=== PATIENT | female | born 1970 | race Caucasian/White ===

== ENCOUNTER → 2019-07-16 14:33 | Outpatient (BNVA) | payer MEDICAID, SELFPAY | PROVIDERS: Family Provider Family Medicine; PCP Family Medicine; Visit Provider Nurse Practitioner Psychiatric/Mental Health | DX: F31.76 Bipolar disorder, in full remission, most recent episode depressed (principal); F43.12 Post-traumatic stress disorder, chronic; F15.21 Other stimulant dependence, in remission | CPT/HCPCS: 90832; 99214 ==

== ENCOUNTER → 2019-07-30 07:53 | Outpatient (BNVA) | payer MEDICAID, SELFPAY | PROVIDERS: Family Provider Family Medicine; PCP Family Medicine; Visit Provider Psychiatry & Neurology Psychiatry | DX: F43.12 Post-traumatic stress disorder, chronic (principal); F31.76 Bipolar disorder, in full remission, most recent episode depressed; F15.21 Other stimulant dependence, in remission | CPT/HCPCS: 90832 ==

== ENCOUNTER → 2019-09-02 13:05 | Outpatient (BNVA) | payer MEDICAID, SELFPAY | PROVIDERS: Family Provider Family Medicine; PCP Family Medicine; Visit Provider Counselor Mental Health | DX: F43.12 Post-traumatic stress disorder, chronic (principal); F31.76 Bipolar disorder, in full remission, most recent episode depressed | CPT/HCPCS: 90834 ==

== ENCOUNTER → 2019-09-11 11:49 | Outpatient (BNVA) | payer MEDICAID, SELFPAY | PROVIDERS: Family Provider Family Medicine; PCP Family Medicine; Visit Provider Counselor Mental Health | DX: F43.12 Post-traumatic stress disorder, chronic (principal); F31.76 Bipolar disorder, in full remission, most recent episode depressed | CPT/HCPCS: 90834 ==

== ENCOUNTER → 2019-09-18 09:28 | Outpatient (BNVA) | payer MEDICAID, SELFPAY | PROVIDERS: Family Provider Family Medicine; PCP Family Medicine; Visit Provider Counselor Mental Health | DX: F43.12 Post-traumatic stress disorder, chronic (principal); F31.76 Bipolar disorder, in full remission, most recent episode depressed | CPT/HCPCS: 90834 ==

== ENCOUNTER → 2019-09-23 08:01 | Outpatient (BNVA) | payer MEDICAID, SELFPAY | PROVIDERS: Family Provider Family Medicine; PCP Family Medicine; Visit Provider Psychiatry & Neurology Psychiatry | DX: F43.12 Post-traumatic stress disorder, chronic (principal); F31.76 Bipolar disorder, in full remission, most recent episode depressed; F15.21 Other stimulant dependence, in remission | CPT/HCPCS: 99213 ==

== ENCOUNTER → 2019-09-24 08:23 | Outpatient (BNVA) | payer MEDICAID, SELFPAY | PROVIDERS: Family Provider Family Medicine; PCP Family Medicine; Visit Provider Counselor Mental Health | DX: F43.12 Post-traumatic stress disorder, chronic (principal); F31.76 Bipolar disorder, in full remission, most recent episode depressed | CPT/HCPCS: 90834 ==

== ENCOUNTER → 2019-10-01 08:43 | Outpatient (BNVA) | payer MEDICAID, SELFPAY | PROVIDERS: Family Provider Family Medicine; PCP Family Medicine; Visit Provider Counselor Mental Health | DX: F43.12 Post-traumatic stress disorder, chronic (principal); F31.76 Bipolar disorder, in full remission, most recent episode depressed | CPT/HCPCS: 90834 ==

== ENCOUNTER → 2019-10-08 08:58 | Outpatient (BNVA) | payer MEDICAID, SELFPAY | PROVIDERS: Family Provider Family Medicine; PCP Family Medicine; Visit Provider Counselor Mental Health | DX: F43.12 Post-traumatic stress disorder, chronic (principal); F31.76 Bipolar disorder, in full remission, most recent episode depressed | CPT/HCPCS: 90832 ==

== ENCOUNTER → 2019-10-15 08:56 | Outpatient (BNVA) | payer MEDICAID, SELFPAY | PROVIDERS: Family Provider Family Medicine; PCP Family Medicine; Visit Provider Counselor Mental Health | DX: F43.12 Post-traumatic stress disorder, chronic (principal); F31.76 Bipolar disorder, in full remission, most recent episode depressed | CPT/HCPCS: 90832 ==

== ENCOUNTER → 2019-10-22 08:30 | Outpatient (BNVA) | payer MEDICAID, SELFPAY | PROVIDERS: Family Provider Family Medicine; Visit Provider Psychiatry & Neurology Psychiatry | DX: F43.12 Post-traumatic stress disorder, chronic (principal); F31.76 Bipolar disorder, in full remission, most recent episode depressed; F15.21 Other stimulant dependence, in remission | CPT/HCPCS: 99213 ==

== ENCOUNTER → 2019-10-29 08:04 | Outpatient (BNVA) | payer MEDICAID, SELFPAY | PROVIDERS: Family Provider Family Medicine; Visit Provider Counselor Mental Health | DX: F43.12 Post-traumatic stress disorder, chronic (principal); F31.76 Bipolar disorder, in full remission, most recent episode depressed | CPT/HCPCS: 90834 ==

== ENCOUNTER → 2019-11-05 08:53 | Outpatient (BNVA) | payer MEDICAID, SELFPAY | PROVIDERS: Family Provider Family Medicine; Visit Provider Counselor Mental Health | DX: F43.12 Post-traumatic stress disorder, chronic (principal); F31.76 Bipolar disorder, in full remission, most recent episode depressed | CPT/HCPCS: 90832 ==

== ENCOUNTER → 2019-11-12 09:08 | Outpatient (BNVA) | payer MEDICAID, SELFPAY | PROVIDERS: Family Provider Family Medicine; Visit Provider Counselor Mental Health | DX: F31.76 Bipolar disorder, in full remission, most recent episode depressed (principal); F43.12 Post-traumatic stress disorder, chronic | CPT/HCPCS: 90832; 90834 ==

== ENCOUNTER → 2019-11-19 08:14 | Outpatient (BNVA) | payer MEDICAID, SELFPAY | PROVIDERS: Family Provider Family Medicine; Visit Provider Counselor Mental Health | DX: F31.76 Bipolar disorder, in full remission, most recent episode depressed (principal); F43.12 Post-traumatic stress disorder, chronic | CPT/HCPCS: 90834 ==

== ENCOUNTER → 2019-11-26 08:18 | Outpatient (BNVA) | payer MEDICAID, SELFPAY | PROVIDERS: Family Provider Family Medicine; Visit Provider Counselor Mental Health | DX: F31.76 Bipolar disorder, in full remission, most recent episode depressed (principal); F43.12 Post-traumatic stress disorder, chronic; F15.21 Other stimulant dependence, in remission | CPT/HCPCS: 90832 ==

== ENCOUNTER → 2019-12-03 08:30 | Outpatient (BNVA) | payer MEDICAID, SELFPAY | PROVIDERS: Family Provider Family Medicine; Visit Provider Counselor Mental Health | DX: F31.76 Bipolar disorder, in full remission, most recent episode depressed (principal); F43.12 Post-traumatic stress disorder, chronic | CPT/HCPCS: 90832 ==

== ENCOUNTER → 2019-12-10 08:24 | Outpatient (BNVA) | payer MEDICAID, SELFPAY | PROVIDERS: Family Provider Family Medicine; Visit Provider Counselor Mental Health | DX: F43.12 Post-traumatic stress disorder, chronic (principal); F31.76 Bipolar disorder, in full remission, most recent episode depressed | CPT/HCPCS: 90834 ==

== ENCOUNTER → 2019-12-30 08:02 | Outpatient (BNVA) | payer MEDICAID, SELFPAY | PROVIDERS: Family Provider Family Medicine; Visit Provider Counselor Mental Health | DX: F43.12 Post-traumatic stress disorder, chronic (principal); F31.76 Bipolar disorder, in full remission, most recent episode depressed | CPT/HCPCS: 90834 ==

== ENCOUNTER → 2020-01-06 08:11 | Outpatient (BNVA) | payer MEDICAID, SELFPAY | PROVIDERS: Family Provider Family Medicine; Visit Provider Counselor Mental Health | DX: F31.76 Bipolar disorder, in full remission, most recent episode depressed (principal); F43.12 Post-traumatic stress disorder, chronic | CPT/HCPCS: 90834 ==

== ENCOUNTER → 2020-01-08 07:29 | Outpatient (BNVA) | payer MEDICAID, SELFPAY | PROVIDERS: Family Provider Family Medicine; Visit Provider Psychiatry & Neurology Psychiatry | DX: F31.76 Bipolar disorder, in full remission, most recent episode depressed (principal); F43.12 Post-traumatic stress disorder, chronic; F15.21 Other stimulant dependence, in remission | CPT/HCPCS: 99214 ==

== ENCOUNTER → 2020-01-13 08:50 | Outpatient (BNVA) | payer MEDICAID, SELFPAY | PROVIDERS: Family Provider Family Medicine; Visit Provider Counselor Mental Health | DX: F31.76 Bipolar disorder, in full remission, most recent episode depressed (principal); F43.12 Post-traumatic stress disorder, chronic; F15.21 Other stimulant dependence, in remission | CPT/HCPCS: 90834 ==

== ENCOUNTER → 2020-01-20 10:15 | Outpatient (BNVA) | payer MEDICAID, SELFPAY | PROVIDERS: Family Provider Family Medicine; Visit Provider Counselor Mental Health | DX: F31.76 Bipolar disorder, in full remission, most recent episode depressed (principal); F15.21 Other stimulant dependence, in remission; F43.12 Post-traumatic stress disorder, chronic | CPT/HCPCS: 90834 ==

== ENCOUNTER → 2020-01-28 08:22 | Outpatient (BNVA) | payer MEDICAID, SELFPAY | PROVIDERS: Family Provider Family Medicine; Visit Provider Counselor Mental Health | DX: F15.21 Other stimulant dependence, in remission (principal); F31.76 Bipolar disorder, in full remission, most recent episode depressed; F43.12 Post-traumatic stress disorder, chronic | CPT/HCPCS: 90832 ==

== ENCOUNTER → 2020-02-01 10:37 | Outpatient (BNVA) | payer MEDICAID, SELFPAY | PROVIDERS: Family Provider Family Medicine; Visit Provider Counselor Mental Health | DX: F43.12 Post-traumatic stress disorder, chronic (principal); F31.76 Bipolar disorder, in full remission, most recent episode depressed | CPT/HCPCS: 90834 ==

== ENCOUNTER → 2020-02-09 08:25 | Outpatient (BNVA) | payer MEDICAID, SELFPAY | PROVIDERS: Family Provider Family Medicine; Visit Provider Counselor Mental Health | DX: F31.76 Bipolar disorder, in full remission, most recent episode depressed (principal); F43.12 Post-traumatic stress disorder, chronic; F15.21 Other stimulant dependence, in remission | CPT/HCPCS: 90834 ==

== ENCOUNTER → 2020-02-17 09:44 | Outpatient (BNVA) | payer MEDICAID, SELFPAY | PROVIDERS: Family Provider Family Medicine; Visit Provider Counselor Mental Health | DX: F43.12 Post-traumatic stress disorder, chronic (principal); F31.76 Bipolar disorder, in full remission, most recent episode depressed | CPT/HCPCS: 90834 ==

== ENCOUNTER → 2020-02-23 08:53 | Outpatient (BNVA) | payer MEDICAID, SELFPAY | PROVIDERS: Family Provider Family Medicine; Visit Provider Counselor Mental Health | DX: F43.12 Post-traumatic stress disorder, chronic (principal); F31.76 Bipolar disorder, in full remission, most recent episode depressed | CPT/HCPCS: 90834 ==

== ENCOUNTER → 2020-03-01 09:15 | Outpatient (BNVA) | payer MEDICAID, SELFPAY | PROVIDERS: Family Provider Family Medicine; Visit Provider Counselor Mental Health | DX: F15.21 Other stimulant dependence, in remission (principal); F43.12 Post-traumatic stress disorder, chronic; F31.76 Bipolar disorder, in full remission, most recent episode depressed | CPT/HCPCS: 90834 ==

== ENCOUNTER → 2020-03-04 08:02 | Outpatient (BNVA) | payer MEDICAID, SELFPAY | PROVIDERS: Family Provider Family Medicine; Visit Provider Psychiatry & Neurology Psychiatry | DX: F31.76 Bipolar disorder, in full remission, most recent episode depressed (principal); F43.12 Post-traumatic stress disorder, chronic; F15.21 Other stimulant dependence, in remission; F41.1 Generalized anxiety disorder | CPT/HCPCS: 99213 ==

== ENCOUNTER → 2020-03-17 07:55 | Outpatient (BNVA) | payer MEDICAID, SELFPAY | PROVIDERS: Family Provider Family Medicine; Visit Provider Counselor Mental Health | DX: F43.12 Post-traumatic stress disorder, chronic (principal); F31.76 Bipolar disorder, in full remission, most recent episode depressed | CPT/HCPCS: 90834 ==

== ENCOUNTER → 2020-03-25 08:49 | Outpatient (BNVA) | payer MEDICAID, SELFPAY | PROVIDERS: Family Provider Family Medicine; Visit Provider Counselor Mental Health | DX: F43.12 Post-traumatic stress disorder, chronic (principal); F31.76 Bipolar disorder, in full remission, most recent episode depressed | CPT/HCPCS: 90834 ==

== ENCOUNTER → 2020-04-06 08:36 | Outpatient (BNVA) | payer MEDICAID, SELFPAY | PROVIDERS: Family Provider Family Medicine; Visit Provider Counselor Mental Health | DX: F43.12 Post-traumatic stress disorder, chronic (principal); F31.76 Bipolar disorder, in full remission, most recent episode depressed | CPT/HCPCS: 90834 ==

== ENCOUNTER → 2020-04-13 07:54 | Outpatient (BNVA) | payer MEDICAID, SELFPAY | PROVIDERS: Family Provider Family Medicine; Visit Provider Counselor Mental Health | DX: F31.76 Bipolar disorder, in full remission, most recent episode depressed (principal); F43.12 Post-traumatic stress disorder, chronic | CPT/HCPCS: 90832 ==

== ENCOUNTER → 2020-04-19 08:41 | Outpatient (BNVA) | payer MEDICAID, SELFPAY | PROVIDERS: Family Provider Family Medicine; Visit Provider Counselor Mental Health | DX: F43.12 Post-traumatic stress disorder, chronic (principal); F31.76 Bipolar disorder, in full remission, most recent episode depressed | CPT/HCPCS: 90832 ==

== ENCOUNTER → 2020-05-19 08:13 | Outpatient (BNVA) | payer MEDICAID, SELFPAY | PROVIDERS: Family Provider Family Medicine; Visit Provider Psychiatry & Neurology Psychiatry | DX: F43.12 Post-traumatic stress disorder, chronic (principal); F31.76 Bipolar disorder, in full remission, most recent episode depressed; F15.21 Other stimulant dependence, in remission | CPT/HCPCS: 99213 ==

== ENCOUNTER → 2020-05-24 08:41 | Outpatient (BNVA) | payer MEDICAID, SELFPAY | PROVIDERS: Family Provider Family Medicine; Visit Provider Counselor Mental Health | DX: F43.12 Post-traumatic stress disorder, chronic (principal) | CPT/HCPCS: 90832 ==

== ENCOUNTER → 2020-09-09 07:31 | Outpatient (BNVA) | payer MEDICAID, SELFPAY | PROVIDERS: Family Provider Family Medicine; Visit Provider Psychiatry & Neurology Psychiatry | DX: F31.76 Bipolar disorder, in full remission, most recent episode depressed (principal); F43.12 Post-traumatic stress disorder, chronic; F15.21 Other stimulant dependence, in remission | CPT/HCPCS: 99214 ==

== ENCOUNTER → 2020-09-14 08:21 | Outpatient (BNVA) | payer MEDICAID, SELFPAY | PROVIDERS: Family Provider Family Medicine; Visit Provider Counselor Mental Health | DX: F43.12 Post-traumatic stress disorder, chronic (principal); F31.76 Bipolar disorder, in full remission, most recent episode depressed | CPT/HCPCS: 90834 ==

== ENCOUNTER → 2020-09-28 08:08 | Outpatient (BNVA) | payer MEDICAID, SELFPAY | PROVIDERS: Family Provider Family Medicine; Visit Provider Counselor Mental Health | DX: F43.12 Post-traumatic stress disorder, chronic (principal); F31.76 Bipolar disorder, in full remission, most recent episode depressed | CPT/HCPCS: 90834 ==

== ENCOUNTER → 2020-10-06 07:36 | Outpatient (BNVA) | payer MEDICAID, SELFPAY | PROVIDERS: Family Provider Family Medicine; Visit Provider Counselor Mental Health | DX: F43.12 Post-traumatic stress disorder, chronic (principal); F31.76 Bipolar disorder, in full remission, most recent episode depressed | CPT/HCPCS: 90834 ==

== ENCOUNTER → 2020-10-25 07:46 | Outpatient (BNVA) | payer MEDICAID, SELFPAY | PROVIDERS: Family Provider Family Medicine; Visit Provider Counselor Mental Health | DX: F43.12 Post-traumatic stress disorder, chronic (principal); F31.76 Bipolar disorder, in full remission, most recent episode depressed | CPT/HCPCS: 90832 ==

== ENCOUNTER → 2020-12-06 07:22 | Outpatient (BNVA) | payer MEDICAID, SELFPAY | PROVIDERS: Family Provider Family Medicine; Visit Provider Psychiatry & Neurology Psychiatry | DX: F31.76 Bipolar disorder, in full remission, most recent episode depressed (principal); F43.12 Post-traumatic stress disorder, chronic; F15.21 Other stimulant dependence, in remission | CPT/HCPCS: 99214 ==

== ENCOUNTER → 2021-01-31 07:27 | Outpatient (BNVA) | payer MEDICAID, SELFPAY | PROVIDERS: Family Provider Family Medicine; Visit Provider Psychiatry & Neurology Psychiatry | DX: F31.76 Bipolar disorder, in full remission, most recent episode depressed (principal); F43.12 Post-traumatic stress disorder, chronic; F15.21 Other stimulant dependence, in remission | CPT/HCPCS: 99214 ==

== ENCOUNTER → 2021-04-26 07:37 | Outpatient (BNVA) | payer MEDICAID, SELFPAY | PROVIDERS: Family Provider Family Medicine; Visit Provider Psychiatry & Neurology Psychiatry | DX: F31.76 Bipolar disorder, in full remission, most recent episode depressed (principal); F43.12 Post-traumatic stress disorder, chronic; F15.21 Other stimulant dependence, in remission | CPT/HCPCS: 99214 ==

== ENCOUNTER → 2021-05-24 08:04 | Outpatient (BNVA) | payer MEDICAID, SELFPAY | PROVIDERS: Family Provider Family Medicine; Visit Provider Psychiatry & Neurology Psychiatry | DX: F31.76 Bipolar disorder, in full remission, most recent episode depressed (principal); F43.12 Post-traumatic stress disorder, chronic; F15.21 Other stimulant dependence, in remission | CPT/HCPCS: 99213 ==

== ENCOUNTER → 2021-08-02 07:14 | Outpatient (BNVA) | payer MEDICAID, SELFPAY | PROVIDERS: Family Provider Family Medicine; Visit Provider Psychiatry & Neurology Psychiatry | DX: F31.76 Bipolar disorder, in full remission, most recent episode depressed (principal); F43.12 Post-traumatic stress disorder, chronic; F15.21 Other stimulant dependence, in remission | CPT/HCPCS: 99213 ==

== ENCOUNTER → 2021-11-14 07:24 | Outpatient (BNVA) | payer MEDICAID, SELFPAY | PROVIDERS: Family Provider Family Medicine; PCP Family Medicine; Visit Provider Psychiatry & Neurology Psychiatry | DX: F31.76 Bipolar disorder, in full remission, most recent episode depressed (principal); F43.12 Post-traumatic stress disorder, chronic; F15.21 Other stimulant dependence, in remission | CPT/HCPCS: 99213 ==

== ENCOUNTER 2021-11-17 13:33 | Outpatient (CLI) | payer MEDICAID, SELFPAY ==
--- NOTE | 2021-11-17 14:03 | MM_ITS ---
WS: [id number] BILATERAL SCREENING DIGITAL BREAST TOMOSYNTHESIS MAMMOGRAM WITH CAD HISTORY: SCREENING COMPARISON: 04/21/2020 and 01/26/2019 Bilateral CC and MLO views with tomosynthesis and synthetic mammography submitted. Computer aided det ection analyzed. Breast composition: There are scattered areas of fibroglandular density. No suspicious masses, microc alcifications or architectural distortion. Benign calcification central RIGHT breast. MM/[place] [id number] IMPRESSION: BI-RADS: 2-Benign FOLLOW UP: 1 Year Follow-up
== END 2021-11-17 13:34 | disposition home or self-care (01) ==
LOC: RAD 13:36
PROVIDERS: PCP Family Medicine; Visit Provider Family Medicine
DX: Z12.31 Encounter for screening mammogram for malignant neoplasm of breast (principal)
CPT/HCPCS: 77063; 77067

== ENCOUNTER 2022-08-28 13:47 | Outpatient (CLI) | payer MEDICAID, SELFPAY | END 2022-08-28 13:48 | disposition home or self-care (01) | LOC: SPT 13:47 | PROVIDERS: PCP Family Medicine; Visit Provider Podiatrist Foot & Ankle Surgery | DX: Z46.89 Encounter for fitting and adjustment of other specified devices (principal); S92.309D Fracture of unspecified metatarsal bone(s), unspecified foot, subsequent encounter for fracture with routine healing; X58.XXXD Exposure to other specified factors, subsequent encounter | CPT/HCPCS: 97760; 99203; L4361 ==

== ENCOUNTER 2022-09-12 16:38 | Outpatient (CLI) | payer MEDICAID, SELFPAY ==
--- NOTE | 2022-09-12 16:30 | CT_ITS ---
WS: [id number] CT LEFT FOOT, NONCONTRAST. 3-D. HISTORY: Suspected left foot 4th metatarsal fracture Technique: All CT scans at [facility] use at least one of these dose optimization techniques: automated exposure control; mA and/or kV adjustment per patient size (includes targeted exams where dose is matched to clinical indication); or iterative reconstruction. DLP: 122.68 mGy.cm COMPARISON: 08/20/2022 Normal alignment of the tarsal and metatarsals. No fractures are identified. Specifically, there is n o fracture at the base of the fourth metatarsal. Calcaneus and talus are normal. Anterior calcaneal p rocess is normal. No osteochondral lesions. No joint effusion. No soft tissue abnormalities. CT/CT foot LT wo con* [id number] IMPRESSION: Negative LEFT foot. No fracture.
== END 2022-09-12 16:39 | disposition home or self-care (01) ==
LOC: RAD 16:40
PROVIDERS: PCP Family Medicine; Visit Provider Podiatrist Foot & Ankle Surgery
DX: M25.572 Pain in left ankle and joints of left foot (principal)
CPT/HCPCS: 73700

== ENCOUNTER → 2022-09-14 13:33 | Outpatient (BNVA) | payer MEDICAID, SELFPAY | PROVIDERS: PCP Family Medicine; Visit Provider Podiatrist Foot & Ankle Surgery | DX: S93.622A Sprain of tarsometatarsal ligament of left foot, initial encounter (principal); X58.XXXA Exposure to other specified factors, initial encounter | CPT/HCPCS: 99213 ==

== ENCOUNTER → 2022-10-25 13:30 | Outpatient (BNVA) | payer MEDICAID, SELFPAY | PROVIDERS: PCP Family Medicine; Visit Provider Podiatrist Foot & Ankle Surgery | DX: S93.622A Sprain of tarsometatarsal ligament of left foot, initial encounter (principal); X58.XXXA Exposure to other specified factors, initial encounter; L85.3 Xerosis cutis | CPT/HCPCS: 99213 ==

== ENCOUNTER 2023-02-14 07:59 | Outpatient (CLI) | payer MEDICAID, SELFPAY ==
--- NOTE | 2023-02-14 08:07 | MM_ITS ---
WS: [id number] BILATERAL SCREENING DIGITAL TOMOSYNTHESIS MAMMOGRAM WITH CAD HISTORY: SCREENING COMPARISON: 11/17/2021, 04/21/2020 and 01/02/2018 Bilateral CC and MLO views with tomosynthesis and synthetic mammography submitted. Computer aided det ection analyzed. Breast composition: There are scattered areas of fibroglandular density. No suspicious masses, microc alcifications or architectural distortion. Benign calcifications. Stable appearance of each breast. IMPRESSION: MM/[place] [id number] BI-RADS: 2-Benign FOLLOW UP: 1 Year Follow-up
--- NOTE | 2023-02-14 08:10 | USCV_ITS ---
Sheela Drake Age: 52 Gender: F : 1970 Exam Date: 02/14/2023 08:21 Ordering Phys: Malachi Leroy XX Technologist: Exam Location[place] [facility] [place]: syst heart failure BP: 120 / 70 HR: 59 Rhythm: Sinus Technical Quality: Adequate MEASUREMENTS (Male / Female) Normal Values 2D ECHO LV Diastolic Diameter PLAX 4.7 cm 4.2 - 5.9 / 3.9 - 5.3 cm LV Systolic Diameter PLAX 3.3 cm IVS Diastolic Thickness 0.9 cm 0.6 - 1.0 / 0.6 - 0.9 cm IVS Systolic Thickness 1.3 cm LVPW Diastolic Thickness 1.1 cm 0.6 - 1.0 / 0.6 - 0.9 cm LVPW Systolic Thickness 1.2 cm LVOT Diameter 2.0 cm LV Ejection Fraction 2D Teich 55.3 % LV Ejection Fraction MOD 2C 55.6 % LV Ejection Fraction 2C AL 56.1 % LA Diameter 3.1 cm IVC Diameter 1.3 cm M-MODE Aortic Annulus Diameter 3.1 cm LA Ao Ratio MM 1.1 MV E Point Septal Separation 0.5 cm DOPPLER AV Peak Velocity 106.0 cm/s LVOT Peak Velocity 98.0 cm/s AV Area Cont Eq vti 2.6 cm squared AV Area Cont Eq pk 3.0 cm squared MV Area PHT 5.0 cm squared Mitral E to A Ratio 0.9 MV E' Velocity 49.5 cm/s Mitral E to MV E' Ratio 7.1 Mitral E to LV E' Lateral Ratio 8.9 Mitral E to LV E' Septal Ratio 6.0 TR Peak Velocity 97.0 cm/s TR Peak Gradient 3.8 mmHg RV Acceleration Time 0.1 s FINDINGS Left Ventricle Normal left ventricular size and systolic function, EF 61 %. Mild left ventricular hypertrophy. No regional wall motion abnormalities. Grade I/IV diastolic dysfunction (abnormal relaxation filling pattern), normal to mildly elevated filling pressures. Right Ventricle The right ventricle is normal in size and function. Right Atrium The right atrium is normal in size. Left Atrium The left atrium is normal in size. Mitral Valve Thickened mitral valve. Trace mitral valve regurgitation. Aortic Valve No gross abnormalities noted Tricuspid Valve No gross abnormalities noted Pulmonic Valve No gross abnormalities noted Pericardium Normal pericardium without effusion. Aorta Normal ascending aorta dimension. IVC Normal inferior vena cava. CONCLUSIONS Normal left ventricular size and systolic function, EF 61 %. Mild left ventricular hypertrophy. No regional wall motion abnormalities. Grade I/IV diastolic dysfunction (abnormal relaxation filling pattern), normal to mildly elevated filling pressures. Thickened mitral valve. Trace mitral valve regurgitation. There is no pericardial effusion. There are no intracardiac masses. No similar previous studies are available for comparison Dr Cindy Zhong MD [facility] (Electronically Signed) Final Date: 14 February 2023 19:06 S
== END 2023-02-14 08:00 | disposition home or self-care (01) ==
PROVIDERS: PCP Family Medicine; Visit Provider Family Medicine
DX: Z12.31 Encounter for screening mammogram for malignant neoplasm of breast (principal); I50.22 Chronic systolic (congestive) heart failure; I34.89 Other nonrheumatic mitral valve disorders
CPT/HCPCS: 77063; 77067; 93306

== ENCOUNTER → 2023-03-12 14:12 | Outpatient (BNVA) | payer MEDICAID, SELFPAY | PROVIDERS: PCP Family Medicine; Visit Provider Podiatrist Foot & Ankle Surgery | DX: M79.672 Pain in left foot (principal); M19.90 Unspecified osteoarthritis, unspecified site; L85.3 Xerosis cutis; M79.671 Pain in right foot | CPT/HCPCS: 36415; 73630; 86160; 86162; 86200; 86235; 86255; 86376; 99213 ==

== ENCOUNTER → 2023-04-02 13:12 | Outpatient (BNVA) | payer MEDICAID, SELFPAY | PROVIDERS: PCP Family Medicine; Visit Provider Podiatrist Foot & Ankle Surgery | DX: L85.3 Xerosis cutis; M19.90 Unspecified osteoarthritis, unspecified site; M79.671 Pain in right foot; M79.672 Pain in left foot | CPT/HCPCS: 99213 ==

== ENCOUNTER → 2023-08-06 09:27 | Outpatient (BNVA) | payer MEDICAID, SELFPAY | PROVIDERS: PCP Family Medicine; Visit Provider Internal Medicine Rheumatology | DX: Z79.899 Other long term (current) drug therapy (principal); Z11.59 Encounter for screening for other viral diseases; M45.6 Ankylosing spondylitis lumbar region; Z11.1 Encounter for screening for respiratory tuberculosis; M06.041 Rheumatoid arthritis without rheumatoid factor, right hand; M06.042 Rheumatoid arthritis without rheumatoid factor, left hand; R76.8 Other specified abnormal immunological findings in serum; M70.61 Trochanteric bursitis, right hip; M70.62 Trochanteric bursitis, left hip; Z71.85 Encounter for immunization safety counseling | CPT/HCPCS: 36415; 80076; 82306; 82565; 85025; 85651; 86140; 86431; 86480; 86704; 86803; 86812; 87340; 87522; 99204 ==

== ENCOUNTER 2023-09-24 09:40 | Outpatient (CLI) | payer MEDICAID, SELFPAY ==
[2023-09-24 10:04] LABS: Basophils # 0.1 10^3/uL (0.0-0.1); Basophils % 1.1 %; Eosinophils # 0.2 10^3/uL (0.0-0.8); Eosinophils % 3.2 %; Hematocrit 41.4 % (36-47); Lymphocytes # 1.1 10^3/uL (0.8-4.8); Lymphocytes % 24.2 %; Mean Corpuscular HGB Conc 31.6 g/dL (30-55); Mean Corpuscular Hemoglobin 27.7 pg (27-33); Mean Corpuscular Volume 87.5 fl (85-98); Mean Platelet Volume 11.3 fL (7.4-10.4); Monocytes # 0.5 10^3/uL (0.2-0.9); Monocytes % 10.7 %; Neutrophils # 2.83 10^3/uL (1.8-7.7); Neutrophils % 60.6 %; Nucleated Red Blood Cells % 0 %; Platelet Count 280 10^3/cmm (157-399); Red Blood Count 4.73 10^6/uL (3.85-5.65); Red Cell Distribution Width 14.3 % (12.1-15.1); White Blood Count 4.67 10^3/uL (3.29-11.43)
[2023-09-24 10:24] LABS: Alanine Aminotransferase 30 U/L (0-33); Albumin Level 3.9 g/dL (3.5-5.2); Alkaline Phosphatase 114 U/L (35-105); Aspartate Amino Transferase 26 U/L (0-32); C Reactive Protein 3.4 mg/L (0.0-4.9); Globulin 3.2 g/dL (1.3-4.6); Glomerular Filtration Rate 74.5 mL/min (90-130); Total Bilirubin 0.4 mg/dL (0.15-1.2); Total Protein 7.1 g/dL (6.6-8.7)
== END 2023-09-24 09:41 | disposition home or self-care (01) ==
LOC: LAB 09:45
PROVIDERS: Absent Provider Internal Medicine Rheumatology; PCP Family Medicine; Visit Provider Internal Medicine Rheumatology
DX: M06.041 Rheumatoid arthritis without rheumatoid factor, right hand (principal); M06.042 Rheumatoid arthritis without rheumatoid factor, left hand; Z79.899 Other long term (current) drug therapy
CPT/HCPCS: 36415; 80076; 82565; 85025; 86140

== ENCOUNTER → 2023-12-24 13:10 | Outpatient (BNVA) | payer MEDICAID, SELFPAY | PROVIDERS: PCP Family Medicine; Visit Provider Internal Medicine Rheumatology | DX: M45.9 Ankylosing spondylitis of unspecified sites in spine (principal); R76.8 Other specified abnormal immunological findings in serum; Z15.89 Genetic susceptibility to other disease; M13.80 Other specified arthritis, unspecified site; Z79.899 Other long term (current) drug therapy; Z71.85 Encounter for immunization safety counseling; Z11.1 Encounter for screening for respiratory tuberculosis; Z11.59 Encounter for screening for other viral diseases | CPT/HCPCS: 36415; 72040; 72072; 72100; 72202; 80076; 82565; 85025; 85651; 86140; 99214 ==

== ENCOUNTER → 2024-05-05 13:51 | Outpatient (BNVA) | payer SELFPAY | PROVIDERS: PCP Family Medicine; Visit Provider Internal Medicine Rheumatology | DX: Z79.899 Other long term (current) drug therapy (principal); M45.9 Ankylosing spondylitis of unspecified sites in spine; R76.8 Other specified abnormal immunological findings in serum; Z71.85 Encounter for immunization safety counseling; Z15.89 Genetic susceptibility to other disease | CPT/HCPCS: 36415; 80076; 82565; 85025; 85651; 86140; 99214 ==

== ENCOUNTER → 2024-08-11 13:41 | Outpatient (BNVA) | payer MEDICAID, SELFPAY | PROVIDERS: PCP Family Medicine; Visit Provider Internal Medicine Rheumatology | DX: Z79.899 Other long term (current) drug therapy (principal); R76.8 Other specified abnormal immunological findings in serum; Z71.85 Encounter for immunization safety counseling; M45.9 Ankylosing spondylitis of unspecified sites in spine; Z15.89 Genetic susceptibility to other disease | CPT/HCPCS: 36415; 80076; 82306; 82565; 84439; 84443; 85025; 85651; 86140; 99214 ==

== ENCOUNTER 2024-12-29 08:23 | Oncology outpatient (recurring) (ONCR) | payer MEDICAID, SELFPAY ==
[2024-12-29] VITALS (7 sets, daily range): BP systolic 92–107; BP diastolic 52–69; PULSE 52–64; RESP 17–18; TEMP 36.2–36.6; O2SAT 96–99
[2024-12-29] MEDS: diphenhydrAMINE 50 mg/mL SDV 1mL 25 MG IVP (09:55)
[2024-12-29] MEDS: methylPREDNISolone sod succ 40 mg/mL INJ IVP (10:04)
== END 2025-01-07 23:59 | disposition home or self-care (01) ==
PROVIDERS: PCP Family Medicine; Visit Provider Internal Medicine Rheumatology
DX: M45.9 Ankylosing spondylitis of unspecified sites in spine (principal); Z79.899 Other long term (current) drug therapy
CPT/HCPCS: 96375; 96413; 96415; A4222; J1200; J2919; J7050; J9999; Q5104

== ENCOUNTER 2025-01-12 10:50 | Oncology outpatient (recurring) (ONCR) | payer MEDICAID, SELFPAY ==
[2025-01-12] VITALS (8 sets, daily range): BP systolic 91–123; BP diastolic 55–84; PULSE 64–73; RESP 16–17; TEMP 36.3–36.6; O2SAT 95–98
[2025-01-12] MEDS: methylPREDNISolone sod succ 40 mg/mL INJ IVP (11:46)
[2025-01-12] MEDS: diphenhydrAMINE 50 mg/mL SDV 1mL 25 MG IVP (11:46)
== END 2025-02-07 23:59 | disposition home or self-care (01) ==
PROVIDERS: PCP Family Medicine; Visit Provider Internal Medicine Rheumatology
DX: M45.9 Ankylosing spondylitis of unspecified sites in spine (principal); Z79.899 Other long term (current) drug therapy
CPT/HCPCS: 96375; 96413; J1200; J2919; J7050; J9999; Q5104

== ENCOUNTER 2025-02-23 12:28 | Oncology outpatient (recurring) (ONCR) | payer MEDICAID, SELFPAY ==
[2025-02-23] VITALS (8 sets, daily range): BP systolic 82–106; BP diastolic 58–74; PULSE 57–74; RESP 16; TEMP 36.3–36.8; O2SAT 93–98
[2025-02-23] MEDS: diphenhydrAMINE 50 mg/mL SDV 1mL 25 MG IVP (13:36)
[2025-02-23] MEDS: methylPREDNISolone sod succ 40 mg/mL INJ IVP (13:43)
== END 2025-03-09 23:59 | disposition home or self-care (01) ==
PROVIDERS: PCP Family Medicine; Visit Provider Internal Medicine Rheumatology
DX: M45.9 Ankylosing spondylitis of unspecified sites in spine (principal); Z79.899 Other long term (current) drug therapy
CPT/HCPCS: 96375; 96413; 96415; A4222; J1200; J2919; J7050; J9999; Q5104

== ENCOUNTER 2025-04-07 11:45 | Oncology outpatient (recurring) (ONCR) | payer MEDICAID, SELFPAY ==
[2025-04-07 11:58] VITALS: BP 93/62; PULSE 61; O2SAT 99
[2025-04-07 12:16] LABS: Hematocrit 42.3 % (36-47); Hemoglobin 13.70 g/dL (11.27-16.99); Mean Corpuscular HGB Conc 32.4 g/dL (30-55); Mean Corpuscular Hemoglobin 27.7 pg (27-33); Mean Corpuscular Volume 85.5 fl (85-98); Nucleated Red Blood Cells % 0 %; Platelet Count 219 10^3/cmm (157-399); Red Blood Count 4.95 10^6/uL (3.85-5.65); White Blood Count 6.26 10^3/uL (3.29-11.43)
[2025-04-07] MEDS: diphenhydrAMINE 50 mg/mL SDV 1mL 25 MG IVP (12:28)
[2025-04-07 12:33] LABS: Albumin Level 4.1 g/dL (3.5-5.2); Alkaline Phosphatase 86 U/L (35-105); Creatinine Clr Calc Pharmacy 96.7946; Globulin 3.4 g/dL (1.3-4.6); Total Protein 7.5 g/dL (6.6-8.7)
[2025-04-07] MEDS: methylPREDNISolone sod succ 40 mg/mL INJ IVP (12:36)
[2025-04-07 13:03] LABS: Aspartate Amino Transferase 25 U/L (0-32)
[2025-04-07 13:04] LABS: Alanine Aminotransferase 14 U/L (0-33)
[2025-04-07 13:15] VITALS: BP 98/63; PULSE 71; RESP 17; TEMP 36.7; O2SAT 97
[2025-04-07 15:38] VITALS: BP 94/62; PULSE 69; RESP 17; O2SAT 98
== END 2025-04-09 23:59 | disposition home or self-care (01) ==
PROVIDERS: PCP Family Medicine; Visit Provider Internal Medicine Rheumatology
DX: M45.9 Ankylosing spondylitis of unspecified sites in spine (principal); Z79.899 Other long term (current) drug therapy
CPT/HCPCS: 80076; 82565; 85025; 85651; 96375; 96413; 96415; A4222; J1200; J2919; J7050; J9999; Q5104

== ENCOUNTER → 2025-04-29 09:22 | Outpatient (BNVA) | payer MEDICAID, SELFPAY | PROVIDERS: PCP Family Medicine; Visit Provider Student in an Organized Health Care Education/Training Program | DX: Z95.828 Presence of other vascular implants and grafts (principal) | CPT/HCPCS: 99204 ==

== ENCOUNTER 2025-05-19 11:01 | Oncology outpatient (recurring) (ONCR) | payer MEDICAID, SELFPAY ==
[2025-05-19 12:05] LABS: Hematocrit 38.5 % (36-47); Hemoglobin 12.80 g/dL (11.27-16.99); Mean Corpuscular HGB Conc 33.2 g/dL (30-55); Mean Corpuscular Hemoglobin 28.4 pg (27-33); Mean Corpuscular Volume 85.6 fl (85-98); Nucleated Red Blood Cells % 0 %; Platelet Count 217 10^3/cmm (157-399); Red Blood Count 4.50 10^6/uL (3.85-5.65); White Blood Count 6.08 10^3/uL (3.29-11.43)
[2025-05-19] MEDS: diphenhydrAMINE 50 mg/mL SDV 1mL 25 MG IVP (12:32)
[2025-05-19 12:33] LABS: Alanine Aminotransferase 9 U/L (0-33); Albumin Level 3.7 g/dL (3.5-5.2); Alkaline Phosphatase 79 U/L (35-105); Aspartate Amino Transferase 16 U/L (0-32); Globulin 3.1 g/dL (1.3-4.6); Total Protein 6.8 g/dL (6.6-8.7)
[2025-05-19] MEDS: methylPREDNISolone sod succ 40 mg/mL INJ IVP (12:36)
== END 2025-06-09 23:59 | disposition home or self-care (01) ==
PROVIDERS: PCP Family Medicine; Visit Provider Internal Medicine Rheumatology
DX: M45.9 Ankylosing spondylitis of unspecified sites in spine (principal); Z79.899 Other long term (current) drug therapy; M06.041 Rheumatoid arthritis without rheumatoid factor, right hand; M06.042 Rheumatoid arthritis without rheumatoid factor, left hand
CPT/HCPCS: 80076; 82565; 85025; 85651; 86140; 96375; 96413; A4222; J1200; J2919; J7050; J9999; Q5104

== ENCOUNTER 2025-06-01 09:45 | Day surgery (SDC) | payer MEDICAID, SELFPAY ==
[2025-06-01] VITALS (8 sets, daily range): BP systolic 87–105; BP diastolic 57–71; PULSE 53–80; RESP 15–22; TEMP 36.1–36.5; O2SAT 95–98; BMI 25.7
--- NOTE | 2025-06-01 10:45 | ANES.PREANE2 ---
Pre-Anesthetic Assessment Height/Weight: Height 5 ft 3 in Weight 145 lb Temp Pulse Resp BP Pulse Ox O2 Del Method 97.6 F 72 15 103/71 95 Room Air 06/01/25 10:41 06/01/25 10:41 06/01/25 10:41 06/01/25 10:41 06/01/25 10:41 06/01/25 10:41 Preop Diagnosis: Ankylosing spondylitis Operation Date: 06/01/25 12:15 Proposed Procedures p Port a Cath Insertion [id number] Z95.828(Not Applicable) - Larry Drake MD Was Beta Rafaela taken within 24 hours: N/A Was Clonidine taken within 24 hours: N/A Last intake: Intake Last Liquid Date 05/31/25 Last Liquid Time 19:00 Last Solid Date 05/31/25 Last Solid Time 19:00 Social No alcohol and No tobacco Exam alert, oriented x 3, clear to auscultation bilaterally and regular rate & rhythm Airway Submandibular: within normal limits Cervical ROM: within normal limits Mallampati: Class III Dentition: false Comments: Comments: Upper and lower plate Anesthetic Plan ASA status: 3 Anesthesia: MAC Other: No prior issues with anesthesia NPO since yesterday evening History of tirzepatide last taken 05/01/2025 Patient has ankylosing spondylitis Rheumatoid arthritis Patient ambulates with a walker Denies any cardiac issue 1 L O2 at night Plan for MAC anesthesia Medications/Allergies Home Medications ?Medication ?Instructions ?Recorded ?Confirmed ?Last Taken ?Type triamcinolone acetonide 1 applic topical DIRECTED 08/06/23 05/04/25 05/03/25 History cholecalciferol (vitamin D3) 50 50 mcg PO DAILY 08/12/24 05/04/25 05/03/25 History mcg (2,000 unit) capsule trazodone 100 mg tablet 200 mg (2 x 100 mg) PO .qhs #60 08/20/24 05/04/25 05/03/25 Rx tabs pregabalin 100 mg capsule (Lyrica) 100 mg PO BID #60 caps 03/09/25 05/04/25 05/03/25 Rx ibuprofen 800 mg tablet 800 mg PO Q8H 05/04/25 05/04/25 05/03/25 History infliximab-abda 100 mg intravenous 100 mg IV DIRECTED 11/05/04/25 04/07/25 History solution (Renflexis) prednisone 20 mg tablet 40 mg PO DAILY PRN joint pain flare 05/04/25 05/04/25 Unknown History tirzepatide (weight loss) 5 mg/0.5 5 mg SUBCUT .WEEKLY 05/04/25 05/04/25 05/01/25 History mL subcutaneous pen injector (Zepbound) Allergies Allergy/AdvReac Type Severity Reaction Status Date / Time gabapentin Allergy Severe pass out Verified 04/29/25 09:44 metronidazole Allergy Severe burning Verified 04/29/25 09:44 and swelling in face adalimumab (From Humira(CF)) Allergy Intermediate welts,itch Verified 04/29/25 09:44 and reddened codeine Allergy Intermediate ADR-Itching Verified 04/29/25 09:44 morphine Allergy Intermediate ADR-Itching Verified 04/29/25 09:44 oxycodone Allergy Intermediate itching Verified 04/29/25 09:44 leflunomide Allergy Unknown ADR-Itching Verified 04/29/25 09:44 ixekizumab (From [place] AdvReac Intermediate ADR-Itching Verified 04/29/25 09:44 Autoinjector) Current Medications Generic Name Dose Route Start Last Admin Trade Name Freq PRN Reason Stop Dose Admin Sodium Chloride 1,000 mls @ 30 mls/hr 06/01/25 10:45 06/01/25 10:43 Sodium Chloride 0.9% IV 06/02/25 10:44 30 mls/hr .Q24H JOE Administration PFSH Anesthesia Medical History HLA B27 (HLA B27 positive) Ankylosing spondylitis Immunization counseling Trochanteric bursitis of both hips Positive LAURA (antinuclear antibody) High risk medication use Seronegative rheumatoid arthritis of both hands Psychiatric care Hot flashes Night sweats Other stimulant dependence, in remission Post-traumatic stress disorder, chronic Surgical History H/O foot surgery 02/2014- broke foot surgery Performed by Dr Peres in [place], [place] H/O bladder repair surgery 11/14/2016-Suburethral sling augmented with metristem. H/O tubal ligation 01/1993 S/P appendectomy 12/1992- performed by Dr. Overton H/O: hysterectomy Family History Family/Other Thyroid disease maternal aunt Heart disease maternal uncle Grandmother Hypertension maternal Heart disease maternal Grandfather Heart disease maternal Stroke maternal Other CAD (coronary artery disease) Cancer Denies family history of Lupus (systemic lupus erythematosus) Rheumatoid arthritis Colon cancer Ovarian cancer Diabetes Clotting disorder Hyperlipidemia Breast cancer Anesthesia complication Bleeding disorder Lung disease Uterine cancer Social History Smoking and tobacco/nicotine status: never used tobacco/nicotine Second hand smoke exposure: Yes Alcohol intake: never Substance/Drug Use: former Date of last use: used IV Methamphetamines for 14 years, she has been recovered for 18 years Data Anesthesia Cardiac Studies: Echocardiogram 02/14/23
--- NOTE | 2025-06-01 10:53 | P.HP_ITS ---
Same Day Surgery H&P Indication for Procedure/HPI DATE OF PROCEDURE: June 01, 2025 CHIEF COMPLAINT/INDICATIONFOR SURGICAL PROCEDURE: vasculopathy, poor IV access PREOP DIAGNOSIS: vasculopathy PLANNED PROCEDURE: Operation Date: 06/01/25 12:15 Proposed Procedures p Port a Cath Insertion [id number] Z95.828(Not Applicable) - Larry Drake MD Medications/Allergies* Home Medications ?Medication ?Instructions ?Recorded ?Confirmed ?Type triamcinolone acetonide 1 applic topical DIRECTED 08/06/23 05/04/25 History cholecalciferol (vitamin D3) 50 50 mcg PO DAILY 05/04/25 History mcg (2,000 unit) capsule ibuprofen 800 mg tablet 800 mg PO Q8H 05/04/2505/04 History infliximab-abda 100 mg intravenous 100 mg IV DIRECT ED 05/04/25 05/04/25 History solution (Renflexis) prednisone 20 mg tablet 40 mg PO DAILY PRN joint sandip n flare 05/04/25 05/04/25 History tirzepatide (weight loss) 5 mg/0.5 5 mg SUBCUT .WEEKLY 05/04/25 05/04/25 History mL subcutaneous pen injector (Zepbound) Allergies/Adverse Reactions Allergy/AdvReac Type Severity Reaction Status Date / Time gabapentin Allergy Severe pass out Verified 04/29/25 09:44 metronidazole Allergy Severe burning Verified 04/29/25 09:44 and swelling in face adalimumab (From Humira(CF)) Allergy Intermediate welts,itch Verified 04/29/25 09:44 and reddened codeine Allergy Intermediate ADR-Itching Verified 04/29/25 09:44 morphine Allergy Intermediate ADR-Itching Verified 04/29/25 09:44 oxycodone Allergy Intermediate itching Verified 04/29/25 09:44 leflunomide Allergy Unknown ADR-Itching Verified 04/29/25 09:44 ixekizumab (From Germaine AdvReac Intermediate ADR-Itching Verified 04/29/25 09:44 Autoinjector) Current Medications: Generic Name Dose Route Start Last Admin Trade Name Freq PRN Reason Stop Dose Admin Sodium Chloride 1,000 mls @ 30 mls/hr 06/01/25 10:45 06/01/25 10:43 Sodium Chloride 0.9% IV 12/24/25 10:44 30 mls/hr .Q24H JOE Administration Pertinent History/Comorbid Conditions* Medical History (Updated 12/24/23 @ 14:52 by Jeff Miranda MD) HLA B27 (HLA B27 positive) Ankylosing spondylitis Immunization counseling Trochanteric bursitis of both hips Positive LAURA (antinuclear antibody) High risk medication use Seronegative rheumatoid arthritis of both hands Psychiatric care Hot flashes Night sweats Other stimulant dependence, in remission Post-traumatic stress disorder, chronic Surgical History (Updated 04/05/20 @ 14:38 by Len Roman MD) H/O foot surgery 02/2014- broke foot surgery Performed by Dr Peres in [place], [place] H/O bladder repair surgery 11/14/2016-Suburethral sling augmented with metristem. H/O tubal ligation 01/1993 S/P appendectomy 12/1992- performed by Dr. Overton H/O: hysterectomy Family History (Updated 08/06/23 @ 10:11 by Natasha Ace LPN) CAD (coronary artery disease) Heart disease Family/Other maternal uncle Grandmother maternal Grandfather maternal Cancer Hypertension Grandmother maternal Thyroid disease Family/Other maternal aunt Stroke Grandfather maternal Denies family history of Lupus (systemic lupus erythematosus) Rheumatoid arthritis Colon cancer Ovarian cancer Diabetes Clotting disorder Hyperlipidemia Breast cancer Anesthesia complication Bleeding disorder Lung disease Uterine cancer Social History Smoking and tobacco/nicotine status: never used tobacco/nicotine Second hand smoke exposure: Yes Alcohol intake: never Substance/Drug Use: former Date of last use: used IV Methamphetamines for 14 years, she has been recovered for 18 years Pertinent Exam Findings alert, oriented x 3, clear to auscultation bilaterally, regular rate & rhythm and procedure specific exam findings neck: grossly normal rrr unlabored breathing ra Recommendations Risks and benefits of procedure reviewed and Patient/family agree to proceed Surgery/Procedure today Coding Level of Care Code Acute Code for Georgetteg Priscila
[2025-06-01] MEDS: ceFAZolin 2,000 mg SDV 2000 MG IVP (11:11)
[2025-06-01] MEDS: heparin, porcine 1,000 unit/mL INJ 10 mL 10000 UNIT INJECTION (11:15)
[2025-06-01] MEDS: BUPivacaine 0.25% INJ 30 mL INJECTION (11:15)
[2025-06-01] MEDS: lidocaine-epi 1% PF 1:200,000 30 mL SDV INJECTION (11:15)
--- NOTE | 2025-06-01 11:21 | ANES.PREANE2 ---
Pre-Anesthetic Assessment Height/Weight: Height 5 ft 3 in Weight 145 lb Temp Pulse Resp BP Pulse Ox O2 Del Method 97.6 F 72 15 103/71 95 Room Air 06/01/25 10:41 06/01/25 10:41 06/01/25 10:41 06/01/25 10:41 06/01/25 10:41 06/01/25 10:41 Preop Diagnosis: Ankylosing spondylitis Operation Date: 06/01/25 12:15 Proposed Procedures p Port a Cath Insertion [id number] Z95.828(Not Applicable) - Larry Drake MD Was Beta Rafaela taken within 24 hours: N/A Last intake: Intake Last Liquid Date 05/31/25 Last Liquid Time 19:00 Last Solid Date 05/31/25 Last Solid Time 19:00 Social No alcohol and No tobacco Exam alert, oriented x 3, clear to auscultation bilaterally and regular rate & rhythm Airway Submandibular: within normal limits Cervical ROM: within normal limits Mallampati: Class III Dentition: false Anesthetic Plan ASA status: 3 Anesthesia: MAC Other: No prior issues with anesthesia NPO since yesterday evening Patient has ankylosing spondylitis and rheumatoid arthritis Patient ambulates with a walker Denies any cardiac or pulmonary issues Plan for MAC anesthesia with local view surgeon Medications/Allergies Home Medications ?Medication ?Instructions ?Recorded ?Confirmed ?Last Taken ?Type triamcinolone acetonide 1 applic topical DIRECTED 08/06/23 05/04/25 05/03/25 History cholecalciferol (vitamin D3) 50 50 mcg PO DAILY 08/12/24 05/04/25 05/03/25 History mcg (2,000 unit) capsule trazodone 100 mg tablet 200 mg (2 x 100 mg) PO .qhs #60 08/20/24 05/04/25 05/03/25 Rx tabs pregabalin 100 mg capsule (Lyrica) 100 mg PO BID #60 caps 03/09/25 05/04/25 05/03/25 Rx ibuprofen 800 mg tablet 800 mg PO Q8H 05/04/25 05/04/25 05/03/25 History infliximab-abda 100 mg intravenous 100 mg IV DIRECTED 05/04/25 05/04/25 04/07/25 History solution (Renflexis) prednisone 20 mg tablet 40 mg PO DAILY PRN joint pain flare 05/04/25 05/04/25 Unknown History tirzepatide (weight loss) 5 mg/0.5 5 mg SUBCUT .WEEKLY 05/04/25 05/04/25 05/01/25 History mL subcutaneous pen injector (Zepbound) Allergies Allergy/AdvReac Type Severity Reaction Status Date / Time gabapentin Allergy Severe pass out Verified 04/29/25 09:44 metronidazole Allergy Severe burning Verified 04/29/25 09:44 and swelling in face adalimumab (From Humira(CF)) Allergy Intermediate welts,itch Verified 04/29/25 09:44 and reddened codeine Allergy Intermediate ADR-Itching Verified 04/29/25 09:44 morphine Allergy Intermediate ADR-Itching Verified 04/29/25 09:44 oxycodone Allergy Intermediate itching Verified 04/29/25 09:44 leflunomide Allergy Unknown ADR-Itching Verified 04/29/25 09:44 ixekizumab (From [place] AdvReac Intermediate ADR-Itching Verified 04/29/25 09:44 Autoinjector) Current Medications Generic Name Dose Route Start Last Admin Trade Name Freq PRN Reason Stop Dose Admin Sodium Chloride 1,000 mls @ 30 mls/hr 06/01/25 10:45 06/01/25 10:43 Sodium Chloride 0.9% IV 06/02/25 10:44 30 mls/hr .Q24H JOE Administration PFSH Anesthesia Medical History HLA B27 (HLA B27 positive) Ankylosing spondylitis Immunization counseling Trochanteric bursitis of both hips Positive LAURA (antinuclear antibody) High risk medication use Seronegative rheumatoid arthritis of both hands Psychiatric care Hot flashes Night sweats Other stimulant dependence, in remission Post-traumatic stress disorder, chronic Surgical History H/O foot surgery 02/2014- broke foot surgery Performed by Dr Peres in [place], [place] H/O bladder repair surgery 11/14/2016-Suburethral sling augmented with metristem. H/O tubal ligation 01/1993 S/P appendectomy 12/1992- performed by Dr. Overton H/O: hysterectomy Family History Family/Other Thyroid disease maternal aunt Heart disease maternal uncle Grandmother Hypertension maternal Heart disease maternal Grandfather Heart disease maternal Stroke maternal Other CAD (coronary artery disease) Cancer Denies family history of Lupus (systemic lupus erythematosus) Rheumatoid arthritis Colon cancer Ovarian cancer Diabetes Clotting disorder Hyperlipidemia Breast cancer Anesthesia complication Bleeding disorder Lung disease Uterine cancer Social History Smoking and tobacco/nicotine status: never used tobacco/nicotine Second hand smoke exposure: Yes Alcohol intake: never Substance/Drug Use: former Date of last use: used IV Methamphetamines for 14 years, she has been recovered for 18 years Data Anesthesia Cardiac Studies: Echocardiogram 02/14/23
--- NOTE | 2025-06-01 11:32 | PM.OP ---
Operative Report Date of procedure: June 01, 2025 Pre-op diagnosis: Vasculopathy Post-op diagnosis: same Post-op findings: Tip of catheter at atriocaval junction confirmed with intraoperative fluoroscopy Procedure done: Port-A-Cath insertion Implants: Port-A-Cath Specimens removed/disposition: N/A Pathology: none sent Surgeon: Larry Drake MD Optical Laboratory Technician: N/A Anesthesia: MAC Estimated blood loss (mL): 10 Complications: N/A Findings: Tip of catheter at atriocaval junction confirmed with intraoperative fluoroscopy Condition: stable Disposition: same day Brief History: 54-year-old female with a history of poor IV access with needs IV infusions for which she is requesting a Port-A-Cath insertion. Discussed risks and benefits and patient ready to proceed with Port-A-Cath insertion Procedure: Patient was brought into the operating room and a timeout was carried out. Procedure was done under MAC. Patient was placed supine with the arms tucked and in Trendelenburg. Patient was prepped and draped in the usual sterile fashion. Using ultrasound guidance the right internal jugular vein was accessed. A guidewire was then placed down to the atriocaval junction using fluoroscopy. The finder needle was removed and the guidewire was secured. I then turned my attention to creating a pocket over the right chest. Make sure to locally infiltrated using plain lidocaine and bupivacaine at the site of the pocket and throughout the tunnel site. I confirmed adequate hemostasis at the pocket. I then proceeded to place the port that was already preassembled and flushed with heparinized saline and the chest pocket. I tunneled the catheter from the chest to the neck at the site where I accessed the internal jugular vein. I measured and adjusted the length of the catheter so it would reach the atrial caval junction. At this point, I used a dilator to dilate the tract into the internal jugular vein using fluoroscopy. I removed the guidewire and proceeded to thread the central venous catheter through the introducer. In the process, I removed the sheath as a completely pushed the catheter into the internal jugular vein. I then confirmed adequate placement of the catheter by performing intraoperative interpretation of fluoroscopy. The tip of the catheter was confirmed to be placed in the atriocaval junction. There were no kinks noted throughout the trajectory of the catheter. I then proceeded to test the port and was satisfied with its functionality. I proceeded to flushed the catheter without any issues. I then hep-locked the port. Skin was closed using deep dermal 3-0 Vicryl, subcuticular 4-0 Monocryl, and Dermabond. Patient was then transferred to PACU without any complications.
--- NOTE | 2025-06-01 11:53 | ANE.PACU2 ---
Inpatient post-anesthesia follow up: Airway intact: Yes Vital signs: Temperature 97.6 F Pulse Rate 57 Respiratory Rate 20 Blood Pressure 93/58 Pulse Oximetry 96 Oxygen Delivery Me thod Room Air Oxygen Flow Rate Fraction of Inspir ed Oxygen Hydration adequate: Yes Nausea and vomiting: No Pain level: 1 Mental status: Baseline
== END 2025-06-01 12:22 | disposition home or self-care (01) ==
PROVIDERS: PCP Family Medicine; Visit Provider Student in an Organized Health Care Education/Training Program
PROC: (CPT 36561; principal; 2025-06-01 12:15)
DX: M31.9 Necrotizing vasculopathy, unspecified (principal); F43.12 Post-traumatic stress disorder, chronic; F15.21 Other stimulant dependence, in remission; M06.9 Rheumatoid arthritis, unspecified; Z80.9 Family history of malignant neoplasm, unspecified; Z82.49 Family history of ischemic heart disease and other diseases of the circulatory system; Z99.81 Dependence on supplemental oxygen
CPT/HCPCS: 36561; 76000; 77001; C1788; J0690; J1644; J2250; J2371; J2704; J3010; J3490; J7030; J9999

== ENCOUNTER → 2025-06-08 12:29 | Outpatient (BNVA) | payer MEDICAID, SELFPAY | PROVIDERS: PCP Family Medicine; Visit Provider Internal Medicine Rheumatology | DX: R76.89 Other specified abnormal immunological findings in serum (principal); Z79.899 Other long term (current) drug therapy; Z71.85 Encounter for immunization safety counseling; M45.9 Ankylosing spondylitis of unspecified sites in spine; Z15.89 Genetic susceptibility to other disease; M13.80 Other specified arthritis, unspecified site | CPT/HCPCS: 99214 ==